=== PATIENT | female | born 1995 | race African-American/Black ===

== ENCOUNTER → 2017-08-08 | Outpatient (CLI) | payer MEDICAID | END | disposition home or self-care (01) | LOC: US 10:39 | PROVIDERS: ATTEND Nurse Practitioner Family | DX: N63.10 Unspecified lump in the right breast, unspecified quadrant (principal) | CPT/HCPCS: 76641 ==

== ENCOUNTER 2017-08-25 09:46 | Emergency (ER) | payer MEDICAID ==
[~2017-08-25] VITALS: Ht 165.1 cm; Wt 56.0 kg
[2017-08-25] MEDS ORDERED: MORPHINE SULFATE 4 MG/ML CPJ (NOT FOR IM USE) IV STA (10:21)
[2017-08-25] MEDS ORDERED: SODIUM CHLORIDE 0.9% 1,000 ML IV ONE (10:21)
[2017-08-25] MEDS ORDERED: FAMOTIDINE 20MG/2ML VIAL IV STA (10:21)
[2017-08-25] MEDS ORDERED: ONDANSETRON HCL 4MG/2ML VIAL IV STA (10:21)
[2017-08-25 10:40] LABS: CLARITY URINE CLOUDY (CLEAR); COLOR URINE YELLOW (YELLOW); KETONES URINE NEGATIVE (NEGATIVE); LEUKOCYTE ESTERASE URINE 2+ (NEGATIVE); NITRITE URINE NEGATIVE (NEGATIVE); OCCULT BLOOD URINE NEGATIVE (NEGATIVE); PH URINE 5.5 (4.5-8.0); PROTEIN URINE NEGATIVE (NEGATIVE); SPECIFIC GRAVITY URINE 1.023 (1.005-1.030)
[2017-08-25 10:44] LABS: BASOPHILS % 0.6 % (0.0-2.0); EOSINOPHILS % 0.9 % (0.0-5.0); HEMATOCRIT. 39.4 % (36.0-48.0); HEMOGLOBIN. 12.9 g/dL (12.0-16.0); LYMPHOCYTES % 48.5 % (20.0-50.0); MEAN CORPUSCULAR HEMOGLOBIN 27.1 pg (28.0-32.0); MEAN CORPUSCULAR VOLUME 82.8 fL (81.0-99.0); MEAN PLATELET VOLUME 7.2 fl (7.4-10.4); MONOCYTES % 7.2 % (2.0-8.0); NEUTROPHILS % 42.8 % (40.0-76.0); PLATELET 236 x1000/uL (130-400); RED BLOOD CELL COUNT 4.76 mill/uL (4.2-5.4); RED CELL DISTRIBUTION WIDTH 13.7 % (11.6-14.6)
[2017-08-25] MEDS ORDERED: KETOROLAC 30MG/ML VIAL IV ONE (10:45)
[2017-08-25 10:50] LABS: CHLORIDE 105 mEq/L (98-107)
[2017-08-25 10:51] LABS: INR 1.1; PROTHROMBIN TIME 11.2 sec (9.4-11.6)
[2017-08-25 10:57] LABS: HCG SCREEN NEGATIVE
[2017-08-25 12:15] VITALS: BP 105/55
== END 2017-08-25 12:19 | disposition home or self-care (01) ==
LOC: ER 09:53
DX: R10.9 Unspecified abdominal pain (principal); N83.209 Unspecified ovarian cyst, unspecified side; D25.9 Leiomyoma of uterus, unspecified; N39.0 Urinary tract infection, site not specified; J45.909 Unspecified asthma, uncomplicated
CPT/HCPCS: 36415; 76830; 76856; 80053; 81003; 81025; 83690; 84703; 85025; 85610; 87086; 96374; 96375; 99285; J1885; J2270; J2405; J3490; J7030

== ENCOUNTER 2018-05-09 14:00 | Emergency (ER) | payer MEDICAID ==
[~2018-05-09] VITALS: Ht 170.2 cm; Wt 67.0 kg
[2018-05-09 17:35] VITALS: BP 124/72
[2018-05-09 17:49] LABS: CLARITY URINE CLEAR (CLEAR); COLOR URINE YELLOW (YELLOW); KETONES URINE 3+ (NEGATIVE); LEUKOCYTE ESTERASE URINE 2+ (NEGATIVE); NITRITE URINE NEGATIVE (NEGATIVE); OCCULT BLOOD URINE NEGATIVE (NEGATIVE); PROTEIN URINE 2+ (NEGATIVE); SPECIFIC GRAVITY URINE 1.014 (1.005-1.030)
== END 2018-05-09 21:14 | disposition left against medical advice (07) ==
LOC: ER 14:00
DX: Z53.21 Procedure and treatment not carried out due to patient leaving prior to being seen by health care provider (principal); J45.909 Unspecified asthma, uncomplicated
CPT/HCPCS: 81025

== ENCOUNTER 2018-05-11 01:01 | Emergency (ER) | payer MEDICAID ==
[~2018-05-11] VITALS: Ht 167.6 cm; Wt 50.0 kg
[2018-05-11] MEDS ORDERED: ONDANSETRON HCL 4MG/2ML INJ IV STA (01:55)
[2018-05-11] MEDS ORDERED: MORPHINE SULFATE 4 MG/ML CPJ (NOT FOR IM USE) IV STA (01:55)
[2018-05-11] MEDS ORDERED: SODIUM CHLORIDE 0.9% 1,000 ML IV ONE (01:55)
[2018-05-11 02:13] LABS: BASOPHILS % 0.4 % (0.0-2.0); EOSINOPHILS % 0.1 % (0.0-5.0); HEMATOCRIT. 39.8 % (36.0-48.0); HEMOGLOBIN. 12.9 g/dL (12.0-16.0); LYMPHOCYTES % 21.5 % (20.0-50.0); MEAN CORPUSCULAR HEMOGLOBIN 27.5 pg (28.0-32.0); MEAN CORPUSCULAR VOLUME 84.8 fL (81.0-99.0); MEAN PLATELET VOLUME 7.3 fl (7.4-10.4); MONOCYTES % 7.5 % (2.0-8.0); NEUTROPHILS % 70.5 % (40.0-76.0); PLATELET 294 x1000/uL (130-400); RED BLOOD CELL COUNT 4.69 mill/uL (4.2-5.4); RED CELL DISTRIBUTION WIDTH 13.7 % (11.6-14.6)
[2018-05-11 02:19] LABS: CHLORIDE 104 mEq/L (98-107)
[2018-05-11 02:21] LABS: INR 1.1; PROTHROMBIN TIME 11.4 sec (9.1-11.1)
[2018-05-11 02:22] LABS: ETHANOL BLOOD < 10 mg/dL
[2018-05-11 02:25] LABS: CLARITY URINE CLOUDY (CLEAR); COLOR URINE YELLOW (YELLOW); KETONES URINE 2+ (NEGATIVE); LEUKOCYTE ESTERASE URINE 2+ (NEGATIVE); NITRITE URINE NEGATIVE (NEGATIVE); OCCULT BLOOD URINE NEGATIVE (NEGATIVE); PH URINE 5.5 (4.5-8.0); PROTEIN URINE 2+ (NEGATIVE); SPECIFIC GRAVITY URINE 1.016 (1.005-1.030)
[2018-05-11 02:27] LABS: HCG SCREEN NEGATIVE
[2018-05-11 02:35] LABS: *COCAINE SCREEN URINE NEGATIVE (NEGATIVE); OPIATES URINE SCREEN NEGATIVE (NEGATIVE); PHENCYCLIDINE URINE SCREEN NEGATIVE (NEGATIVE)
[2018-05-11 02:36] LABS: *AMPHETAMINES SCREEN URINE NEGATIVE (NEGATIVE); *BARBITURATES SCREEN URINE NEGATIVE (NEGATIVE); *BENZODIAZEPINES SCREEN URINE NEGATIVE (NEGATIVE)
[2018-05-11 02:37] LABS: CANNABINOID URINE SCREEN PRESUMTIVE POSITIVE (NEGATIVE)
[2018-05-11 02:38] LABS: METHADONE URINE SCREEN NEGATIVE (NEGATIVE)
[2018-05-11 04:21] VITALS: BP 115/58
== END 2018-05-11 04:36 | disposition home or self-care (01) ==
LOC: ER 01:01
DX: N83.202 Unspecified ovarian cyst, left side (principal); N83.201 Unspecified ovarian cyst, right side; D25.9 Leiomyoma of uterus, unspecified; N39.0 Urinary tract infection, site not specified; J45.909 Unspecified asthma, uncomplicated
CPT/HCPCS: 36415; 76830; 76856; 80053; 80305; 80320; 81003; 81025; 83690; 84703; 85025; 85610; 87077; 87086; 96361; 96374; 96375; 99284; C1893; J2270; J2405; J7030; Z7610; G0480